=== PATIENT | female | born 1935 | race Caucasian/White ===

== ENCOUNTER → 2016-10-17 | Outpatient (CLI) | payer MEDICARE, BC | END | disposition home or self-care (01) | LOC: CFH 13:22 | PROVIDERS: ATTEND Nurse Practitioner Family | DX: N85.8 Other specified noninflammatory disorders of uterus (principal); R59.9 Enlarged lymph nodes, unspecified | CPT/HCPCS: 76857 ==

== ENCOUNTER → 2017-01-20 | Outpatient (CLI) | payer MEDICARE, BC ==
[~2017-01-20] MED LIST: REGADENOSON 0.4 MG/5 ML SYRINGE ONE
== END | disposition home or self-care (01) ==
LOC: CFH 12:03
PROVIDERS: ATTEND Internal Medicine Cardiovascular Disease
DX: Z01.810 Encounter for preprocedural cardiovascular examination (principal); I44.7 Left bundle-branch block, unspecified; I35.0 Nonrheumatic aortic (valve) stenosis; I34.0 Nonrheumatic mitral (valve) insufficiency; Q21.0 Ventricular septal defect; I10 Essential (primary) hypertension
CPT/HCPCS: 78452; 93017; 93306; A9502; J2785

== ENCOUNTER 2017-04-17 09:46 | Emergency (ER) | payer MEDICARE, BC ==
[~2017-04-17] VITALS: Ht 167.6 cm; Wt 57.0 kg
[2017-04-17 09:47] VITALS: BP 164/78
[2017-04-17] MEDS ORDERED: AMLO10TA2 PO (11:30)
[2017-04-17] MEDS ORDERED: LOSA1TAB18 PO (11:32)
[2017-04-17] MEDS ORDERED: ALEN70TA5 PO (11:32)
[2017-04-17] MEDS ORDERED: METO-93 PO (11:32)
== END 2017-04-17 12:22 | disposition home or self-care (01) ==
LOC: ED 12:00
DX: I80.01 Phlebitis and thrombophlebitis of superficial vessels of right lower extremity (principal); I10 Essential (primary) hypertension
CPT/HCPCS: 99284

== ENCOUNTER 2020-11-20 05:46 | Emergency (ER) | payer MEDICARE, BC ==
[~2020-11-20] VITALS: Ht 165.1 cm; Wt 52.6 kg
[~2020-11-20 05:46] MED LIST changes: +ALEN70TA77 PO; +AMLO-211 PO; +LOSA1TAB25 PO; +METO-93 PO; -REGADENOSON 0.4 MG/5 ML SYRINGE ONE
--- NOTE | 2020-11-20 06:01 | NUR ---
PTS MEDS: AMLODIPINE 5MG METOPROLOL LOSARTAN W/POTASSIUM POTASSIUM 10MEQ GURMEET PRO 0.3/1.5 ROSUVASTATIN 10MG CALCIUM 600MG COQID 100MG EPIFANIO RED FISH OIL D3 2000 IU
--- NOTE | 2020-11-20 06:10 | NUR ---
PT CAME IN C/O POSSIBLE HERNIA, AND HAS HISTORY OF THE SAME. PT A&OX4 AND PTS SON AT BEDSIDE. PT PLACED ON CR MONITOR, AND SIDERAILS UP X2 AND CALL LIGHT WITHIN REACH. MD TO BEDSIDE TO EVAL PT, AND ORDERS RECEIVED.
--- NOTE | 2020-11-20 06:27 | NUR ---
PIPV STARTED TO LEFT AC, X1 ATTEMPT BY CONTENT ARCHITECT STUDENT, AND BLOOD DRAWN AND SENT TO LAB. PIV FLUSHED EASILY AND SECURED WITH TAPE AND COVERING. PT IN NO ACUTE DISTRESS.
[2020-11-20 06:30] LABS: BASOPHILS % (AUTO) 0 % (0-1); EOSINOPHILS % (AUTO) 1 % (1-7); LYMPHOCYTES % (AUTO) 23 % (22-44); MEAN CORPUSCULAR HGB CONC 33.9 g/dL (32.4-35.8); MONOCYTES % (AUTO) 7 % (2-9); NEUTROPHILS % (AUTO) 69 % (42-75); PLATELET COUNT 197 x10^3/uL (130-400); RED BLOOD COUNT 4.33 x10^6/uL (3.82-5.3); RED CELL DISTRIBUTION WIDTH 12.8 % (9.6-15.2)
[2020-11-20 06:31] LABS: MD NO
[2020-11-20 06:43] LABS: ALANINE AMINOTRANSFERASE 26 U/L (12-78); ALBUMIN 3.9 g/dL (3.4-5.0); ANION GAP 3 mmol/L (5-15); CALCIUM 9.3 mg/dL (8.5-10.1); CHLORIDE 105 mmol/L (98-107); CREATININE 0.73 mg/dL (0.55-1.02)
[2020-11-20 06:45] LABS: ALKALINE PHOSPHATASE 40 U/L (45-117); BILIRUBIN,TOTAL 0.6 mg/dL (0.2-1.0); TOTAL PROTEIN 7.5 g/dL (6.4-8.2)
--- NOTE | 2020-11-20 06:59 | NUR ---
SENT URINE ON PATIENT. SHE IS IN BED, COOPERATIVE, AT BEDSIDE.
[2020-11-20 07:16] LABS: MICROSCOPIC NOT IND
--- NOTE | 2020-11-20 07:22 | NUR ---
PATIENT LEFT TO CT SCAN
[2020-11-20] MEDS ORDERED: OMNIPAQUE 350 MG/ML, 100ML BOTTLE ONE (07:32)
[2020-11-20] MEDS ORDERED: MAALOX/HYOSCYAMINE/LIDOCAINE 45 ML BTL ONE (07:54)
[2020-11-20 07:59] VITALS: BP 128/78
[2020-11-20] MEDS ORDERED: MAALOX/HYOSCYAMINE/LIDOCAINE 45 ML BTL PO ONE (08:00)
[2020-11-20] MEDS ORDERED: UBID50TA3 PEG (18:24)
[2020-11-20] MEDS ORDERED: OMEG-76 PO (18:24)
[2020-11-20] MEDS ORDERED: CALCIUM PO (18:24)
[2020-11-20] MEDS ORDERED: ROSU10TA2 PO (18:24)
[2020-11-20] MEDS ORDERED: POTASSIUM PO (18:24)
[2020-11-20] MEDS ORDERED: ESTR1TAB5 PO (18:24)
[2020-11-22] MEDS ORDERED: ACID1TAB7 PO (12:38)
[2020-11-22] MEDS ORDERED: CARV6.2512 PO (12:38)
[2020-11-22] MEDS ORDERED: LOSA100T2 PO (12:38)
== END 2020-11-20 08:19 | disposition home or self-care (01) ==
LOC: ED 08:12
DX: R10.11 Right upper quadrant pain (principal); R10.13 Epigastric pain; R10.12 Left upper quadrant pain; R94.31 Abnormal electrocardiogram [ECG] [EKG]; I10 Essential (primary) hypertension
CPT/HCPCS: 36415; 74177; 80053; 81003; 83690; 85025; 93005; 99285; Q9967